=== PATIENT | male | born 1955 | race Caucasian/White ===

== ENCOUNTER 2020-05-30 07:22 | Outpatient (CLI) | payer MEDICARE, OTHER, SELFPAY ==
--- NOTE | ~2020-05-30 | XR_ITS ---
EXAMINATION: XR chest 2V EXAM DATE: 05/30/2020 16:36 INDICATION: Hypoxia. Shortness of breath. TECHNIQUE: Frontal and lateral projections of the chest obtained and reviewed. There is no prior bonnie dy for comparison. FINDINGS: Moderate left pleural effusion with adjacent multisegmental atelectasis. The lungs are oth erwise clear. There are no pleural effusions. The cardiomediastinal silhouette is within normal pineda its. There is no pneumothorax suspected. The bones and soft tissues are unremarkable. IMPRESSION: Moderate left pleural effusion, adjacent atelectasis. Can't exclude underlying pneumonia or cancer. Consider one-month follow-up exam. Reviewed, dictated and finalized at location B. EILLANCE SYSTEMS ANALYST
[2020-05-30 08:27] LABS: Hematocrit 46.5 % (42.0-52.0); Hemoglobin 16.1 g/dL (14.0-18.0); Mean Corpuscular HGB Conc 34.6 g/dl (32-36); Mean Corpuscular Hemoglobin 31.3 pg (26-34); Mean Corpuscular Volume 90.5 fl (80-100); Mean Platelet Volume 8.9 fl (7.4-10.4); Platelet Count Result 123 k/mm3 (150-375); Red Blood Count 5.14 M/mm3 (4.6-6.20); Red Cell Distribution Width 12.4 % (11.5-14.5); White Blood Count 9.2 K/mm3 (4.5-10.0)
[2020-05-30 08:44] LABS: Band Neutrophils Percent 6 % (0-6); Eosinophils Absolute Manual 0.09 K/mm3 (0.02-0.5); Eosinophils Percent Manual 1 % (0-4); Monocytes Absolute Manual 0.36 K/mm3 (0.1-0.90); Monocytes Percent Manual 4 % (3-9); Neutrophils Absolute Manual 7.63 K/mm3 (1.3-6.7); Neutrophils Percent Manual 77 % (46-73); Nucleated Red Blood Cells 1 %; Total Cells Counted 100
[2020-05-30 08:45] LABS: Platelet Estimate Adequate (Adequate)
[2020-05-30 08:49] LABS: Alanine Aminotransferase 77 U/L (4-50); Albumin Level 4.1 g/dL (3.5-5.1); Alkaline Phosphatase 114 U/L (38-126); Anion Gap 5 mmol/L (8-16); Aspartate Amino Transferase 71 U/L (17-59); Bilirubin,Total 0.6 mg/dL (0.2-1.3); Blood Urea Nitrogen 11 mg/dL (9-20); Calcium 9.7 mg/dL (8.4-10.2); Carbon Dioxide 34 mmol/L (22-30); Chloride 98 mmol/L (98-107); Cholesterol 224 mg/dL (0-200); Estimated Glomerular Filt Rate > 60; Glucose 229 mg/dL (75-110); HDL Direct 28 mg/dL; Sodium 137 mmol/L (137-145); Triglycerides 348 mg/dL (<150)
[2020-05-30 08:53] LABS: Potassium 4.5 mmol/L (3.4-5.0)
[2020-05-30 08:57] LABS: LDL Cholesterol Direct 151 mg/dL
[2020-05-30 09:41] LABS: Vitamin D 25 Hydroxy 19.5 ng/mL
[2020-05-30 18:50] LABS: Hemoglobin A1C 9.5 % (<5.7)
[2020-06-03 22:24] LABS: PSA, Total 0.5 ng/mL (<=4.0)
== END 2020-05-30 07:23 | disposition home or self-care (01) ==
PROVIDERS: PCP Family Medicine; Visit Provider Family Medicine
DX: R09.02 Hypoxemia (principal); N40.1 Benign prostatic hyperplasia with lower urinary tract symptoms; R73.9 Hyperglycemia, unspecified; J44.9 Chronic obstructive pulmonary disease, unspecified; E78.2 Mixed hyperlipidemia; R53.83 Other fatigue; E55.9 Vitamin D deficiency, unspecified; I10 Essential (primary) hypertension; R06.02 Shortness of breath; J90 Pleural effusion, not elsewhere classified
CPT/HCPCS: 36415; 71046; 80053; 80061; 82306; 83036; 84153; 84154; 84443; 85025

== ENCOUNTER → 2020-05-31 12:29 | Outpatient (CLI) | payer MEDICARE, OTHER, SELFPAY ==
--- NOTE | ~2020-05-31 | CT_ITS ---
EXAMINATION: CT chest wo con DATE: 05/31/2020 12:42 INDICATION: Shortness of breath and cough TECHNIQUE: Computed tomography (CT) of the chest was performed without intravenous contrast. The dose -length product (DLP) was 709.92 mGy-cm. Automated exposure control and iterative reconstruction tech [employer] were employed. COMPARISON: Chest radiograph from yesterday FINDINGS: There is a left parahilar and lower lobe mass which is difficult to measure without intrave nous contrast. There is atelectasis of the left lower lobe. A moderate-sized left pleural effusion is present. There is left supraclavicular, prevascular, aorticopulmonary window, right perihilar, left hilar, and subcarinal lymphadenopathy. There is a 2.6 x 1.0 cm area of pleural thickening of the post erior medial in the right hemithorax on image 78. The heart size is normal. There is mild emphysema. The liver is diffusely low in attenuation when compared with the spleen, consistent with hepatic stea tosis. There is mild thoracic spondylosis. IMPRESSION: 1. Left perihilar and lower lobe mass, consistent with primary bronchogenic carcinoma. 2. Mediastinal and supraclavicular lymphadenopathy are consistent with metastatic disease. 3. Focal pleural thickening on the right of unclear significance. Reviewed, dictated and finalized at location A. K PLUG ASSEMBLER IMPRESSION: 1. Left perihilar and lower lobe mass, consistent with primary bronchogenic car cinoma. 2. Mediastinal and supraclavicular lymphadenopathy are consistent with metastat ic disease. 3. Focal pleural thickening on the right of unclear significance.
== END ==
PROVIDERS: PCP Family Medicine; Visit Provider Family Medicine
DX: R91.8 Other nonspecific abnormal finding of lung field (principal); R59.0 Localized enlarged lymph nodes
CPT/HCPCS: 71250

== ENCOUNTER 2020-06-04 16:22 | Emergency (ER) | payer MEDICARE, OTHER, SELFPAY ==
--- NOTE | ~2020-06-04 | CT_ITS ---
EXAMINATION: CT abd pelvis lumbar wo con DATE: 06/04/2020 17:52 INDICATION: Lung cancer. Low back pain. TECHNIQUE: Computed tomography (CT) of the abdomen, pelvis, and lumbar spine was performed without in travenous contrast. Automated exposure control and iterative reconstruction technique were employed. The dose-length product was 1502.12 mGy-cm. COMPARISON: None FINDINGS: CT ABDOMEN AND PELVIS: The visualized portions of the lung bases demonstrate a moderate-sized left pl eural effusion. There is left hilar and mediastinal lymphadenopathy. There is atelectasis in left gelacio g lower lobe. The heart size is normal. There are coronary artery calcifications. No pericardial effu cyn. The liver, gallbladder, spleen, pancreas, adrenal glands, and kidneys are normal. There are no dilated loops of bowel. The appendix is normal. There are bilateral inguinal hernias containing fat. There is no free intraperitoneal fluid. CT LUMBAR SPINE: There is 3 degrees levocurvature of lumbar spine. Vertebral body heights are normal. There is mildly decreased disc height at L1-L2, L2-L3, L3-L4, and L4-L5. The following disc levels a re specifically discussed: L1-L2: The disc is bulging. There is mild bilateral facet joint osteoarthritis. There is mild bilater al neural foraminal stenosis. There is no central canal stenosis. L2-L3: The disc is bulging. There is moderate bilateral facet joint osteoarthritis. There is mild cristopher ateral neural foraminal stenosis. There is mild central canal stenosis. L3-L4: The disc is bulging. There is severe bilateral facet joint osteoarthritis. There is mild bilat eral neural foraminal stenosis. There is mild central canal stenosis. L4-L5: The disc is bulging. There is severe bilateral facet joint osteoarthritis. There is mild right and moderate left neural foraminal stenosis. There is mild central canal stenosis. L5-S1: The disc bulging. There is severe bilateral facet joint osteoarthritis. There is moderate righ t and mild left neural foraminal stenosis. There is mild central canal stenosis. IMPRESSION: 1. Mediastinal and left hilar lymphadenopathy, consistent with metastatic disease. 2. Moderate-sized left pleural effusion. 3. Moderate lumbar spondylosis. Reviewed, dictated and finalized at location A. RVISORY IT SPECIALIST IMPRESSION: 1. Mediastinal and left hilar lymphadenopathy, consistent with metastatic disea se. 2. Moderate-sized left pleural effusion. 3. Moderate lumbar spondylosis.
[2020-06-04 16:48] VITALS: BP 128/82; PULSE 102; RESP 94; TEMP 36.1; O2SAT 95
[2020-06-04] MEDS: KETOROLAC 15 MG/ML VIAL (*BKC) IV PUSH (18:09)
[2020-06-04] MEDS: diazePAM INJ (*CRX) 10 MG/2 ML SYRINGE 3 MG IV PUSH (18:09)
[2020-06-04 18:20] LABS: Glucose Point of Care 133 (65-105)
--- NOTE | 2020-06-04 18:25 | ED.BACK ---
HPI - Back Pain/Injury General Chief Complaint: Back Pain/Injury Stated Complaint: pain in lower back since Saturday Time Seen by Provider: 06/04/20 16:56 History of Present Illness HPI Narrative: Patient is a 64-year-old male who presents ER with low back pain. Symptoms began on 06/27/2020. Aching bilateral low back pain that has increased in intensity. No relief with [id number]-mialbcn medication at home. Worse with twisting and bending. No lower extremity numbness or tingling. No difficulty with urination/defecation. Patient has had recent diagnosis of lung cancer with metastases to lymph nodes. He is currently undergoing work-up for this. Patient denies any trauma. Related Data Home Medications Medication Instructions Recorded Confirmed [id number] INHALATION 06/04/20 06/04/20 [Trelegy Ellipta] Allergies Allergy/AdvReac Type Severity Reaction Status Date / Time No Known Allergies Allergy Verified 06/04/20 16:55 Review of Systems Constitutional: Constitutional: Denies chills, Denies fever(s) and Denies weakness Gastrointestinal: Gastrointestinal: Denies abdominal pain, Denies nausea and Denies vomiting Musculoskeletal: Musculoskeletal: Reports back pain, Denies joint swelling and Reports muscle cramps Neurologic: Denies focal weakness and Denies numbness PMFSH Past Medical History Medical History (Updated 06/04/20 @ 18:41 by Otto Emery MD) Normal colonoscopy RBBB SOBOE (shortness of breath on exertion) Tobacco abuse Surgical History Surgical History (Updated 05/30/20 @ 14:49 by Izabela Evangelista MD) H/O hernia repair Family History Family History (Updated 05/30/20 @ 14:27 by Coleen Beverly) Father Carcinoma of colon Colon polyp Colon cancer Social History Social History (Updated 05/30/20 @ 14:30 by Coleen Beverly) Social History: Divorce Smoking packs per day: 1 Smoking cigarettes per day: 20.0 Years smoked: 40 Smoking pack-years: 40.00 Smoking status: Former smoker Tobacco type: cigarettes Second hand tobacco smoke exposure: No Smoking end date: 04/27/20 Alcohol intake: never Substance use: never Substance use type: does not use Gender identity (if verbalized by the patient): Male Exam Narrative: Exam Narrative: GENERAL: Well-appearing, well-nourished, and in no acute distress. HEAD: Normocephalic, atraumatic. CHEST: Clear to auscultation. No respiratory distress. HEART: Regular rate and rhythm. Normal peripheral pulses. EXTREMITIES: Normal range of motion. No edema. Back: Mild midline tenderness of the lumbar spine L3/L4 level. There is also significant paraspinal muscular tenderness in the lumbar region. No significant thoracic tenderness. SKIN: Warm, dry, no rash. NEURO: Alert and oriented x3. Course Course Emergency Course: Patient informed of results. Pain improving with Toradol and Valium. Discharge home with supportive therapy. Vital Signs Vital signs: Vital Signs Temperature 97.0 F L 06/04/20 16:48 Pulse Rate 102 H 06/04/20 16:48 Respiratory Rate 94 H 06/04/20 16:48 Blood Pressure 128/82 06/04/20 16:48 Pulse Oximetry 95 06/04/20 16:48 Temperature 97.0 F L 06/04/20 16:48 Pulse Rate 102 H 06/04/20 16:48 Respiratory Rate 94 H 06/04/20 16:48 Blood Pressure 128/82 06/04/20 16:48 Pulse Oximetry 95 06/04/20 16:48 MDM - Back Pain/Injury Lab Data Labs: Lab Results 06/04/20 Range/Units 18:17 POC Capillary Glucose 133 H (65-105) mg/dl Imaging Data Radiologist's impression: ITS Impressions Miscellaneous CT Procedure 06/04/20 17:54 IMPRESSION: 1. Mediastinal and left hilar lymphadenopathy, consistent with metastatic disease. 2. Moderate-sized left pleural effusion. 3. Moderate lumbar spondylosis. Discharge Plan Discharge Clinical Impression: Strain of lumbar region Patient Disposition: Home, Self-Care Condition:
[2020-06-04 18:55] VITALS: BP 136/80; PULSE 94; RESP 17; O2SAT 98
== END 2020-06-04 19:22 | disposition home or self-care (01) ==
PROVIDERS: Emergency Provider Emergency Medicine; PCP Family Medicine
DX: S39.012A Strain of muscle, fascia and tendon of lower back, initial encounter (principal); C34.90 Malignant neoplasm of unspecified part of unspecified bronchus or lung; C77.9 Secondary and unspecified malignant neoplasm of lymph node, unspecified; M47.816 Spondylosis without myelopathy or radiculopathy, lumbar region; Z87.891 Personal history of nicotine dependence; X58.XXXA Exposure to other specified factors, initial encounter
CPT/HCPCS: 72131; 74176; 82948; 96374; 96375; 99284; J1885; J3360

== ENCOUNTER 2020-06-07 09:05 | Outpatient (CLI) | payer MEDICARE, OTHER, SELFPAY ==
[2020-06-06 12:46] VITALS: BMI 39.6
[2020-06-07] VITALS (9 sets, daily range): BP systolic 99–123; BP diastolic 62–81; PULSE 80–88; RESP 18–24; O2SAT 90–94
--- NOTE | ~2020-06-07 | XR_ITS ---
EXAMINATION: XR chest 1V portable DATE: 06/07/2020 12:36 INDICATION: Hypoxia and midsternal chest pain post thoracentesis TECHNIQUE: frontal view of the chest was obtained. COMPARISON: Chest radiograph dated 06/07/2020 11:28 AM and 05/30/2020 FINDINGS: Small left pleural effusion. Persistent triangular retrocardiac opacity in the left mid to lower lung zone consistent with left lower lobar collapse. No pneumothorax. Right lung remains clear. No increa sed interstitial pattern or new airspace opacities to suggest pulmonary edema. No pneumothorax or rig ht-sided pleural effusion. Heart size is normal. Persistent superior mediastinal widening correspond to bulky lymphadenopathy on prior CT. IMPRESSION: 1. No significant change in small left pleural effusion and likely left lower lobar collapse. No pulm onary edema, pneumothorax or other interval change. 2. Mediastinal lymphadenopathy concerning for metastatic disease. Reviewed, dictated and finalized at location A. IFIED ETHICAL HACKER IMPRESSION: 1. No significant change in small left pleural effusion and likely left lower l obar collapse. No pulmonary edema, pneumothorax or other interval change. 2. Mediastinal lymphadenopathy concerning for metastatic disease.
--- NOTE | ~2020-06-07 | XR_ITS ---
EXAMINATION: [id number]_CR DATE: 06/07/2020 11:31 INDICATION: Left pleural effusion post thoracentesis TECHNIQUE: frontal view of the chest was obtained. COMPARISON: Chest radiograph dated 05/30/[address] dated 05/31/2020 FINDINGS: Decreased now small left pleural effusion. Persistent triangular retrocardiac opacity at the left mid to lower lung zone consistent with left lower lobar collapse. Right lung remains clear with no pleur al effusion. No pneumothorax. Heart size is normal. Prominent widening of the superior mediastinum co rresponding to bulky lymphadenopathy on prior CT. There are bridging osteophytes at multiple levels i n the spine, consistent with diffuse idiopathic skeletal hyperostosis (DISH). IMPRESSION: 1. Decreased now small left pleural effusion with persistent left lower lobar collapse. Underlying pn eumonia or malignancy not excludable. 2. Bulky superior mediastinal lymphadenopathy which favors malignancy with metastatic disease. Reviewed, dictated and finalized at location A. GER DENTAL IMPRESSION: 1. Decreased now small left pleural effusion with persistent left lower lobar c ollapse. Underlying pneumonia or malignancy not excludable. 2. Bulky superior mediastinal lymphadenopathy which favors malignancy with meta static disease.
--- NOTE | ~2020-06-07 | US_ITS ---
EXAMINATION: US biopsy lymph node DATE: 06/07/2020 12:26 INDICATION: Mediastinal and left supraclavicular lymphadenopathy concerning for metastatic disease. TECHNIQUE: The procedure including the risks and benefits was discussed with the patient. Risks discu ssed included bleeding and infection. The patient understood the risks and agreed to proceed. The sk in overlying the left supraclavicular region was prepped and draped in usual sterile fashion. Anesth etic was administered with 1% lidocaine subcutaneously. An 18 gauge core biopsy needle was advanced under continuous ultrasound observation to the lesion of interest. 4 core biopsy specimens were obta ined. The needle was removed and the entry site was cleaned and dressed. Post procedure ultrasound demonstrated no hemorrhage. FINDINGS: Ultrasound images demonstrate multiple enlarged round hypoechoic lymph nodes the left supra clavicular region. Subsequent images demonstrate biopsy needle advanced into 4 of these enlarged lymp h nodes. IMPRESSION: 1. Successful Ultrasound-guided biopsy of several enlarged left supraclavicular lymph nodes which are concerning for metastatic disease. Reviewed, dictated and finalized at location A. ETING EDUCATION TEACHER
--- NOTE | ~2020-06-07 | US_ITS ---
EXAMINATION: US thoracentesis DATE: 06/07/2020 12:29 INDICATION: Left pleural effusion TECHNIQUE: The procedure and its risks and benefits were discussed with the patient. Potential risks discussed included bleeding, infection, and pneumothorax. The patient understood the risks and agreed to proceed. The skin was prepped and draped in sterile fashion. 1% lidocaine was used for local anes thesia. Under ultrasound guidance, a 5 Fr catheter with trochar was advanced into the left pleural ef fusion. Fluid was aspirated. The catheter was removed, and a dressing was applied. There were no imme diate complications. FINDINGS: Ultrasound images demonstrate a small to moderate sized left pleural effusion and the catheter within the fluid. There was no evident increased aeration of the trochanteric collapsed left lower lobe whi ch raises concern for a more central obstruction in the left infrahilar region. IMPRESSION: 1. Successful ultrasound-guided thoracentesis yielding 900 mL of dark shaun-colored fluid. Reviewed, dictated and finalized at location A. REPAIRER IMPRESSION: 1. Successful ultrasound-guided thoracentesis yielding 900 mL of dark shaun-co lored fluid.
[2020-06-07 09:34] LABS: Prothrombin Time 14.1 Seconds (11.1-14.7)
[2020-06-07 11:40] LABS: Glucose Point of Care 126 (65-105)
--- NOTE | 2020-06-07 12:39 | SUR.PHASEII ---
1225 - pt's o2 sat at 89%. pt has been running in 94-95%. pt c/o midsternal chest pain. rates pain 5-6/10. o2 at 2l/nc applied. pt c/o slight SOB. Dr. Mazariegos called 1231 - chest xray obtained. 1235 - daughter updated on pt's status 1244 - dr. mazariegos in room talking with pt.
--- NOTE | 2020-06-07 13:29 | SUR.PHASEII ---
1325- dr. mazariegos called with update. stated that he is coming to see patient prior to discharge
--- NOTE | 2020-06-07 13:42 | SUR.PHASEII ---
1338 - dr. mazariegos in room talking with patient. o2 sats maintaining at 94% on roomair. okay to discharge home
== END 2020-06-07 13:43 | disposition home or self-care (01) ==
PROVIDERS: Radiology Diagnostic Radiology; PCP Family Medicine; Visit Provider Family Medicine
DX: C34.90 Malignant neoplasm of unspecified part of unspecified bronchus or lung (principal); J90 Pleural effusion, not elsewhere classified; R59.0 Localized enlarged lymph nodes; R09.02 Hypoxemia
CPT/HCPCS: 32555; 36415; 38505; 71045; 76942; 85610; 88305; 88342

== ENCOUNTER 2020-07-15 02:18 | Outpatient (CLI) | payer MEDICARE, OTHER, SELFPAY ==
[2020-07-15 20:00] LABS: SARS-CoV-2 RNA PCR Negative
== END 2020-07-15 02:19 | disposition home or self-care (01) ==
LOC: ANHCOVIDDT 02:18
PROVIDERS: PCP Family Medicine; Visit Provider Surgery
DX: Z01.812 Encounter for preprocedural laboratory examination (principal); Z20.828 Contact with and (suspected) exposure to other viral communicable diseases
CPT/HCPCS: 87635; C9803; U0003

== ENCOUNTER 2020-07-18 02:00 | Day surgery (SDC) | payer MEDICARE, OTHER, SELFPAY ==
[2020-07-12 15:33] VITALS: BMI 37.0
--- NOTE | 2020-07-15 13:18 | WPDANESEPPF ---
Anes - Initial Pre Proc Eval Procedure: Operation Date: 07/18/20 09:00 Proposed Procedures p Insertion Of Power Terry Cath - Davdi Guillory DO Date/Time: 07/15/20 13:18 Surgeon: David Guillory DO Pre Op Diagnosis: Small Cell Lung Cancer Patient Data Age: 64 Gender: M Height: 1.78 m Weight: 117 kg Allergies Allergy/AdvReac Type Severity Reaction Status Date / Time No Known Allergies Allergy Verified 07/18/20 07:06 Home Medications Medication Instructions Recorded Confirmed Type lorazepam 0.5 mg tablet 0.5 mg PO BID PRN #60 tablet 06/13/20 07/18/20 Rx promethazine 25 mg tablet 25 mg PO TID PRN #20 tablet 06/13/20 07/12/20 Rx tamsulosin 0.4 mg capsule 0.4 mg PO DAILY #90 cap 07/11/20 07/18/20 Rx fentanyl 1 patch TOPICAL Q3-4D 07/12/20 07/18/20 History fiber 5 cap PO BID PRN 07/12/20 07/18/20 History insulin glargine [Lantus U-100 See Rx Instructions .ROUTE .COMPLEX 07/12/20 07/18/20 History Insulin] ipratropium-albuterol 1 ml INHALATION DAILY 07/12/20 07/12/20 History oxycodone 5 mg PO Q6-8H PRN 07/12/20 07/18/20 History simethicone [Gas-X] 160 mg PO BID PRN 07/12/20 07/18/20 History fluticasone fur. 200 mcg-umeclid 1 inh INHALATION QAM #90 ea 07/13/20 07/18/20 Rx 62.5 mcg-vilant 25 mcg inhalat.powder Patient hx anesthesia problems: none Family hx anesthesia problems: none PMFSH Past Medical History Medical History (Updated 07/15/20 @ 13:18 by Enrique Howard DO) Bone cancer COPD (chronic obstructive pulmonary disease) Hyperlipidemia Hypertension New onset type 2 diabetes mellitus Normal colonoscopy Pancytopenia due to chemo RBBB Small cell lung cancer SOBOE (shortness of breath on exertion) Tobacco abuse Surgical History Surgical History (Updated 05/30/20 @ 14:49 by Izabela Evangelista MD) H/O hernia repair Family History Family History (Updated 05/30/20 @ 14:27 by Coleen Beverly) Father Carcinoma of colon Colon polyp Colon cancer Social History Social History (Updated 05/30/20 @ 14:30 by Coleen Beverly) Social History: Divorce Smoking packs per day: 1 Smoking cigarettes per day: 20.0 Years smoked: 47 Smoking pack-years: 47.00 Smoking status: Former smoker Tobacco type: cigarettes Second hand tobacco smoke exposure: No Smoking end date: 03/29/20 Alcohol intake: former Alcohol use details: QUIT DRINKING 2011 Substance use: never Substance use type: does not use Living arrangements: alone Gender identity (if verbalized by the patient): Male Spiritual care concerns: No Anes - Eval Final PreProcedure Day of Procedure 07/15/20 13:18 Patient weight: obese Heart: regular rate and rhythm Lungs: clear to auscultation and normal air movement Airway: Mallampati scale class II Neurological: alert and oriented Last oral intake: >/= 8 hours ASA classification: III Emergent: no Anesthetic plan: proceed Anesthesia type and monitoring: general GIVS and standard monitoring Informed Consent: The patient's anesthetic plan and its attendant risks and benefits were discussed with the patient/family/POA. Questions were solicited and answers provided to the satisfaction of the patient/family/POA.
--- NOTE | ~2020-07-18 | XR_ITS ---
EXAMINATION: XR chest port-a-cath/central INDICATION: Port-A-Cath insertion TECHNIQUE: Portable AP chest at 0942 hours COMPARISON: 06/07/2020 FINDINGS: A right internal jugular Port-A-Cath has been inserted which ends with its tip in the proxi mal right atrium. No pneumothorax is identified. Cardiomegaly is noted. There is a small left pleural effusion. Left basilar airspace opacities persist without significant change. A right upper extremit y PICC ends with its tip in the distal superior vena cava. IMPRESSION: 1. Right internal jugular Port-A-Cath insertion. No pneumothorax. 2. Stable left basilar airspace opacity, consistent with known malignancy. 3. Small left pleural effusion. Reviewed, dictated and finalized at location A. MAKE UP ARTIST
--- NOTE | ~2020-07-18 | XR_ITS ---
EXAMINATION: XR fl guide central line place INDICATION: Port-A-Cath insertion TECHNIQUE: Two intraoperative fluoroscopic images are submitted for review. Total fluoroscopic time i s 41.5 seconds. COMPARISON: None available FINDINGS: Fluoroscopic images demonstrate a right internal jugular Port-A-Cath ending with its tip in the proximal right atrium. Please refer to procedure note for full details. IMPRESSION: 1. Right Port-A-Cath insertion. Please refer to procedure note for full details. Reviewed, dictated and finalized at location A. RAM REVIEW DIRECTOR IMPRESSION: 1. Right Port-A-Cath insertion. Please refer to procedure note for full details .
[2020-07-18 07:06] VITALS: BP 108/74; PULSE 77; RESP 20; TEMP 36.7; O2SAT 98
[2020-07-18] MEDS: LACTATED RINGERS 1,000 ML 30 ML IV CONT (07:55)
[2020-07-18] MEDS: KETOROLAC 15 MG/ML VIAL (*BKC) IV PUSH (08:00)
[2020-07-18 08:02] LABS: Glucose Point of Care 145 (65-105)
[2020-07-18 08:12] LABS: Partial Thromboplastin Time 34.5 SECONDS (22.3-36.8)
--- NOTE | 2020-07-18 08:26 | PM.IMHP ---
H&P: HPI History of Present Illness Date/Time: 07/18/20 08:26 Chief Complaint: Small cell lung cancer Narrative: Erickson Beverly is a 64 year old male who presents with a recent diagnosis of small-cell lung cancer. He has been started on chemotherapy and was getting this through PICC line. He is now in need of port placement to continue long-term chemotherapy. Review of Systems Review of Systems: All systems reviewed & are unremarkable except as noted in HPI and below Eyes: Eyes: Denies change in vision ENT: Denies hearing loss, Denies neck pain and Denies sore throat Cardiovascular: Cardiovascular: Denies chest pain and Denies dyspnea Respiratory: Respiratory: Denies cough, Denies dyspnea and Denies wheezing Genitourinary: Genitourinary: Denies hematuria and Denies dysuria Musculoskeletal: Musculoskeletal: Denies arthralgias, Denies joint swelling and Denies neck pain Allergic/Immunologic: Allergic/Immunologic: Denies wheezing PMFSH Past Medical History Medical History Bone cancer COPD (chronic obstructive pulmonary disease) Hyperlipidemia Hypertension New onset type 2 diabetes mellitus Normal colonoscopy Pancytopenia due to chemo RBBB Small cell lung cancer SOBOE (shortness of breath on exertion) Tobacco abuse Surgical History Surgical History H/O hernia repair Family History Family History Father Carcinoma of colon Colon polyp Colon cancer Social History Social History Social History: Divorce Smoking packs per day: 1 Smoking cigarettes per day: 20.0 Years smoked: 47 Smoking pack-years: 47.00 Smoking status: Former smoker Tobacco type: cigarettes Second hand tobacco smoke exposure: No Smoking end date: 03/29/20 Alcohol intake: former Alcohol use details: QUIT DRINKING 2011 Substance use: never Substance use type: does not use Living arrangements: alone Gender identity (if verbalized by the patient): Male Spiritual care concerns: No Meds Home Medications and Allergies Home Medications Medication Instructions Recorded Confirmed Type lorazepam 0.5 mg tablet 0.5 mg PO BID PRN #60 tablet 06/13/20 07/18/20 Rx promethazine 25 mg tablet 25 mg PO TID PRN #20 tablet 06/13/20 07/12/20 Rx tamsulosin 0.4 mg capsule 0.4 mg PO DAILY #90 cap 07/11/20 07/18/20 Rx fentanyl 1 patch TOPICAL Q3-4D 07/12/20 07/18/20 History fiber 5 cap PO BID PRN 07/12/20 07/18/20 History insulin glargine [Lantus U-100 See Rx Instructions .ROUTE .COMPLEX 07/12/20 07/18/20 History Insulin] ipratropium-albuterol 1 ml INHALATION DAILY 07/12/20 07/12/20 History oxycodone 5 mg PO Q6-8H PRN 07/12/20 07/18/20 History simethicone [Gas-X] 160 mg PO BID PRN 07/12/20 07/18/20 History fluticasone fur. 200 mcg-umeclid 1 inh INHALATION QAM #90 ea 07/13/20 07/18/20 Rx 62.5 mcg-vilant 25 mcg inhalat.powder Allergies Allergy/AdvReac Type Severity Reaction Status Date / Time No Known Allergies Allergy Verified 07/18/20 07:06 Vital Signs Vital Signs - 24 hr 07/18/20 07:06 Temperature 36.7 C Pulse Rate 77 Respiratory Rate 20 Blood Pressure 108/74 Pulse Oximetry 98 Exam Const: General: alert; No acute distress Orientation/consciousness: patient oriented x3 Limitations: no limitations HENMT: Head: normocephalic and atraumatic Ears: hearing grossly normal bilaterally General nose exam: Normal external nose present and Normal nares present Mouth: Yes Normal oral and palatal mucosa present and Yes moist mucous membranes Eyes: General: appearance normal, both eyes and all related structures Conjunctivae: conjunctivae normal Sclera: sclerae normal Pupils: Equal, round and reactive pupils present EOM: EOMs intact bilaterally Neck: Neck: normal
--- NOTE | 2020-07-18 08:28 | WPDHPUPDATE1 ---
History and Physical Update Update Date/Time: 07/18/20 08:28 History and Physical has been reviewed, including an updated exam of the patient. There are NO changes in the patient's condition. Risks, benefits, and alternatives have been discussed and questions answered. Patient agrees to proceed with procedure.
--- NOTE | 2020-07-18 08:41 | SUR.PREOP ---
0840-PT OFFERED BR TO VOID, STATES DOES NOT NEED TO GO, CAN'T GO .
[2020-07-18] MEDS: ceFAZolin 2 GM/D5W 50 ML 2 GM/50 ML BAG IVPB (08:43)
[2020-07-18] MEDS: LIDO 1%/EPINEPHRINE 1:100,000 20 ML VIAL INFILTRATE (09:08)
[2020-07-18] MEDS: HEPARIN SODIUM 5,000 UNITS/ML VIAL 5000 UNITS IRRIGATION (09:08)
[2020-07-18] MEDS: HEPARIN SODIUM, PORCINE 10,000 UNITS/10 ML VIAL 3000 UNITS IRRIGATION (09:10)
--- NOTE | 2020-07-18 09:32 | PM.PROC ---
Procedure Note - Detailed Date of procedure: 07/18/20 Pre-op diagnosis: Small Cell Lung Cancer Post-op diagnosis: same Procedure performed: Right internal jugular Port-A-Cath placement using ultrasound and fluoroscopic guidance Description of procedure: Procedure as well as risks, benefits, and alternatives were discussed with patient. Written consent was obtained and placed in chart prior to procedure. Patient was brought back to surgical suite. Was placed supine on operating table. Time-out was done confirm patient procedure. IV sedation was then administered by the Anesthesia Department. The chest and neck area was prepped and draped in sterile fashion using chlorhexidine prep. Patient was placed in Trendelenburg position. SonoSite ultrasound was used to identify the right internal jugular vein. It was visualized as a compressible vessel just lateral to the carotid artery. 1% lidocaine with epinephrine was infiltrated directly over the vessel under ultrasound guidance. An 18 gauge introducer needle was then advanced under ultrasound guidance directly into the right internal jugular vein. Dark nonpulsatile blood was aspirated. A 0.035 in guidewire was then advanced through the needle under fluoroscopic guidance. The guidewire was visualized advancing all the way down into the superior vena cava. 1% lidocaine with epinephrine was then infiltrated on the right anterior chest and along the tract up to the guidewire insertion site. A 3 cm incision was made with a 15 blade scalpel, and electrocautery was then used for dissection down through the subcutaneous tissue to the pectoral fascia. A pocket was created just inferior to the incision using blunt dissection. A small sharlene incision was then also made at the insertion site at the neck. The tunneler was then advanced from the chest incision up to the neck incision and the catheter tubing was brought up through this tract. The dilator and sheath were then advanced over the guidewire under fluoroscopic visualization. The dilator and guidewire were then removed leaving the sheath in place. The catheter tubing was then advanced through the sheath under fluoroscopic guidance. The sheath was unsnapped and carefully peeled away. The catheter tubing was released underneath the neck incision. Fluoroscopy was used to confirm proper placement of the catheter tubing and no kinks along its path. The catheter was then cut to proper length and secured to the port. The port was then accessed with a Baca needle and aspirated and flushed with heparinized saline. The port function with ease. The port was then hep-locked with Hep-Lock solution. The port was then placed within the pocket that was created, and was secured to the fascia using 3 0 Prolene simple interrupted sutures. The patient was flattened out in bed. Radha's fascia was reapproximated using 3 0 Vicryl simple interrupted sutures. The skin of the incisions was then approximated using 4-0 Monocryl subcuticular suture. Exofin glue was then applied on top. The patient was then awakened from anesthesia and transferred to recovery. Implants: Smart Port CT port Anesthesia: MAC and local (1% lidocaine with epinephrine) Surgeon: David Guillory DO Estimated blood loss (mL): 5 Complications: No immediate complications Condition: stable Disposition: same day Findings: Ultrasound guidance was used to identify the right internal jugular vein. This was visualized as a compressible vessel just lateral to the carotid artery. The 18 gauge introducer needle was then advanced under ultrasound guidance until within the lumen. Dark nonpulsatile blood was aspirated. Fluoroscopy was then used to guide placement of the guidewire followed by the dilator and sheath. The port tubing was then advanced under ultrasound guidance and was left in place in the cavoatrial junction. Final fluoroscopic images demonstrated port in proper position without any kinks along its pat
[2020-07-18 09:35] VITALS: BP 105/61; PULSE 81; RESP 14; O2SAT 94
[2020-07-18 09:49] LABS: Glucose Point of Care 178 (65-105)
[2020-07-18 10:05] VITALS: BP 103/54; PULSE 61; RESP 14
[2020-07-18 10:30] VITALS: BP 107/56; PULSE 65; RESP 14
--- NOTE | 2020-07-18 10:44 | SUR.PHASEII ---
0942 PORTABLE CHEST XRAY TAKEN.
== END 2020-07-18 10:41 | disposition home or self-care (01) ==
PROVIDERS: PCP Family Medicine; Visit Provider Surgery
PROC: (CPT 36561; principal; 2020-07-18 09:00)
DX: C34.90 Malignant neoplasm of unspecified part of unspecified bronchus or lung (principal); I10 Essential (primary) hypertension; E78.5 Hyperlipidemia, unspecified; E11.9 Type 2 diabetes mellitus without complications; J44.9 Chronic obstructive pulmonary disease, unspecified; I45.10 Unspecified right bundle-branch block; D61.810 Antineoplastic chemotherapy induced pancytopenia; Z87.891 Personal history of nicotine dependence; E66.9 Obesity, unspecified; Z68.36 Body mass index [BMI] 36.0-36.9, adult
CPT/HCPCS: 36561; 36415; 77001; 85730; C1788; J0690; J1644; J1885; J2250; J2704; J3010; J7030; J7120

== ENCOUNTER 2020-09-27 13:23 | Outpatient (CLI) | payer MEDICARE, OTHER, SELFPAY | END 2020-09-27 13:24 | disposition home or self-care (01) | LOC: ANHCOVIDVC 13:23 | PROVIDERS: PCP Family Medicine; Visit Provider Family Medicine | DX: Z23 Encounter for immunization (principal) | CPT/HCPCS: 0001A; 91300 ==

== ENCOUNTER 2020-10-18 13:27 | Outpatient (CLI) | payer MEDICARE, OTHER, SELFPAY | END 2020-10-18 13:28 | disposition home or self-care (01) | LOC: ANHCOVIDVC 13:27 | PROVIDERS: PCP Family Medicine | DX: Z23 Encounter for immunization (principal) | CPT/HCPCS: 0002A; 91300 ==